=== PATIENT | female | born 1955 | race African-American/Black ===

== ENCOUNTER 2023-11-08 10:49 | Emergency (ER) | payer OTHER ==
[~2023-11-08] VITALS: Ht 170.2 cm; Wt 80.0 kg
[2023-11-08 10:54] VITALS: O2SAT 100
[2023-11-08 11:29] LABS: BASOPHILS % 0.6 % (0.0-2.0); EOSINOPHILS % 0.9 % (0.0-5.0); HEMATOCRIT. 37.5 % (36.0-48.0); HEMOGLOBIN. 12.7 g/dL (12.0-16.0); LYMPHOCYTES % 32.4 % (20.0-50.0); MEAN CORPUSCULAR HEMOGLOBIN 30.3 pg (28.0-32.0); MEAN CORPUSCULAR HGB CONC 33.7 g/dL (31.0-37.0); MEAN CORPUSCULAR VOLUME 89.8 fL (81.0-99.0); MEAN PLATELET VOLUME 9.4 fl (7.4-10.4); NEUTROPHILS % 62.1 % (40.0-76.0); PLATELET 225 x1000/uL (130-400); RED BLOOD CELL COUNT 4.18 mill/uL (4.2-5.4); WHITE BLOOD COUNT 6.6 x1000/uL (4.5-11.0)
[2023-11-08] MEDS: ONDANSETRON HCL 4MG/2ML INJ IV STA (11:31)
[2023-11-08] MEDS: MORPHINE SULFATE 4 MG/ML INJ (FOR IV/IM USE) IV STA (11:31)
[2023-11-08 11:39] LABS: PROTHROMBIN TIME 10.9 sec (9.6-11.0)
[2023-11-08 11:54] LABS: ALANINE AMINOTRANSFERASE 12 IU/L (10-49); ALBUMIN 4.7 g/dL (3.2-4.8); ASPARTATE AMINOTRANSFERASE 29 IU/L (<34); BILIRUBIN TOTAL 0.7 mg/dL (0.1-1.0); CALCIUM 9.7 mg/dL (8.7-10.4); CARBON DIOXIDE 26 mEq/L (21-32); CHLORIDE 107 mEq/L (98-107); GLUCOSE 136 mg/dL (70-105); PROTEIN TOTAL 8.1 g/dL (6.0-8.3); SODIUM 140 mEq/L (136-145); UREA NITROGEN BLOOD 15 mg/dL (9-23)
[2023-11-08] MEDS ORDERED: MORPHINE SULFATE 4 MG/ML INJ (FOR IV/IM USE) IV ONE (12:45)
[2023-11-08] MEDS: KETOROLAC 30MG/ML VIAL IV ONE (13:24)
[2023-11-08 14:28] VITALS: BP 159/57; PULSE 69; RESP 17; TEMP 98.2
== END 2023-11-08 14:59 | disposition short-term general hospital (02) ==
LOC: ER 10:57
DX: N20.0 Calculus of kidney (principal); N23 Unspecified renal colic; Z98.890 Other specified postprocedural states
CPT/HCPCS: 99285; 74176; 96374; 96375; 80053; 83690; 85025; 85610; 36415; J1885; J2405; J2270